=== PATIENT | female | born 1945 | race Caucasian/White ===

== ENCOUNTER → 2016-06-24 13:51 | Outpatient (CLI) | payer MEDICARE | END | disposition home or self-care (01) | LOC: D.CT 13:51 | DX: I71.4 Abdominal aortic aneurysm, without rupture (principal) ==

== ENCOUNTER → 2017-01-19 12:17 | Outpatient (CLI) | payer MEDICARE | END | disposition home or self-care (01) | LOC: D.RT 12:17 | DX: R91.8 Other nonspecific abnormal finding of lung field (principal) ==

== ENCOUNTER → 2017-06-03 15:34 | Outpatient (CLI) | payer MEDICARE ==
[2017-06-03 16:08] LABS: BASOPHILS 0.4 % (0-2); EOSINOPHILS 2.8 % (0-7); HEMATOCRIT 40.6 % (36.0-48.0); HEMOGLOBIN 13.4 g/dL (12-16); IMMATURE GRANULOCYTES 0.1 % (0-5); LYMPHOCYTES 38.9 % (15-50); MCH 31.2 pg (26.0-34.0); MCV 94.6 fL (80.0-100.0); MEAN PLATELET VOLUME 9.1 fL (7.4-10.4); MONOCYTES 6.2 % (2-11); NEUTROPHILS 51.6 % (40-80); PLATELET COUNT 173 10x3/uL (130-400); RBC 4.29 10x6/uL (4.00-5.40); RDW 13.3 % (11.5-14.5); WBC 7.6 10x3/uL (4.8-10.8)
[2017-06-03 16:42] LABS: ANION GAP 11.3 mmol/L (8-16); CALCIUM 10.2 mg/dL (8.5-10.1); PHOSPHOROUS 3.4 mg/dL (2.5-4.9); POTASSIUM - SERUM 3.3 mmol/L (3.5-5.1)
[2017-06-03 17:04] LABS: CREATININE - URINE 129.8 mg/dL (30-125); PRO/CRE RATIO URINE 0.1 mg/g
== END | disposition home or self-care (01) ==
LOC: D.LAB 15:34
PROVIDERS: Internal Medicine Nephrology
DX: N18.3 Chronic kidney disease, stage 3 (moderate) (principal)

== ENCOUNTER → 2017-07-01 13:30 | Outpatient (CLI) | payer MEDICARE | END | disposition home or self-care (01) | LOC: D.MAMMO 13:30 | DX: Z12.31 Encounter for screening mammogram for malignant neoplasm of breast (principal) ==

== ENCOUNTER → 2017-07-21 08:25 | Outpatient (CLI) | payer MEDICARE ==
[2017-07-21 10:12] LABS: CREATININE - SERUM 1.1 mg/dL (0.6-1.3)
== END | disposition home or self-care (01) ==
LOC: D.CT 08:25
PROVIDERS: Internal Medicine Cardiovascular Disease
DX: I71.4 Abdominal aortic aneurysm, without rupture (principal)

== ENCOUNTER → 2017-08-16 07:44 | Outpatient (CLI) | payer MEDICARE ==
[~2017-08-16 07:44] MED LIST: CELEXA40 MG PO; ELIQUIS2.5 MG PO; FENOFIBRATE160 MG PO; HYDROCODONE-APA1 TAB PO; IPRAT-ALBUT 0.5-3 ML UPD; LEVOTHYROXINE125 MCG PO; METFORMIN HCL500 M1 PO; MUCINEX D1 TAB.SR . PO; NEURONTIN 300300 MG PO; OMEPRAZOLE40 MG PO; SINGULAIR10 MG PO; SPIRIVA RESPIMAT4 G1 INH; SYMBICORT 16010.2 GM INH; TENORMIN25 MG PO; VENTOLIN HFA18 GM INH; VITAMIN D31000 UNIT PO; ZANTAC300 MG PO; ZESTRIL40 MG PO; ZOCOR80 MG PO
== END | disposition home or self-care (01) ==
LOC: D.OPS 07:44 → D.RAD 09:00
DX: M16.12 Unilateral primary osteoarthritis, left hip (principal); M25.552 Pain in left hip; Z01.812 Encounter for preprocedural laboratory examination

== ENCOUNTER → 2017-10-05 14:07 | Outpatient (CLI) | payer MEDICARE | END | disposition home or self-care (01) | LOC: D.LABREF 14:07 | DX: M16.12 Unilateral primary osteoarthritis, left hip (principal); Z11.8 Encounter for screening for other infectious and parasitic diseases ==

== ENCOUNTER 2017-10-19 10:00 | Inpatient (IN) | payer MEDICARE ==
[~2017-10-19] VITALS: Ht 160 cm; Wt 102.3 kg
--- NOTE | ~2017-10-19 | OP ---
PATIENT NAME: RENEE ALEXIS MEDICAL RECORD: [id number] :43 LOCATION:D.[id number] ADMISSION DATE:10/24/17 SURGEON: JULIETTE SANCHEZ MD DATE OF OPERATION: 10/24/2017 PREOPERATIVE DIAGNOSIS: Degenerative arthritis of the left hip. POSTOPERATIVE DIAGNOSIS: Degenerative arthritis of the left hip. PROCEDURE: Left total hip arthroplasty. SURGEON: Juliette Sanchez MD ANESTHESIA: General. INTRAOPERATIVE COMPLICATIONS: None. SUMMARY OF PATHOLOGIC FINDINGS: The patient has severe end-stage degenerative hip with substantial osteophytes. IMPLANTS USED: [employer] Anato hip system 130 neck angle size 3, Biolox ceramic head 36 mm +5, Tritanium cluster hole spherical shell size 50, polyethylene insert 36 mm alpha code D. ESTIMATED BLOOD LOSS: 300 cc. OPERATIVE SUMMARY IN DETAIL: After obtaining the appropriate preoperative orthopedic surgery consents as well as anesthetic consultation, evaluation, and clearance, the patient was brought to the operating room and placed on the operating table in supine position. After general laryngeal mask airway was administered, the patient was placed in a right lateral decubitus position. All pressure points were well padded to include down leg peroneal pad as well as axillary roll. The patient was held firmly to the operating table using the vacuum pack suction system. Left lower extremity and hip were then prepped and draped in routine sterile fashion. Curvilinear incision was made over the greater trochanter and taken along the IT band which was split in line with fibers of the IT band to reveal gluteus medius and minimus attachment to the greater trochanter. These were reflected anteriorly to reveal the hip capsule. It was split in a T-type fashion and saved for later reapproximation. Hip was dislocated. Femoral neck cut was made using the femoral neck cutting guide for the Anato system. Attention was then turned to the acetabulum and circumferential labrectomy was then followed by serial and sequential reaming for a size 50. Size [address] with good capture, screws not needed. Liner was put into place and checked. After completing this, attention was turned to the proximal femur. Serial and sequential reaming and broaching were done for a size 3 Anato stem, a size [address]. Trial was undertaken with the minus, standard and +5. The +5 was best for leg length and stability. The +5 [address], reduced, taken through range of motion and intraoperative radiograph showed good position and placement of all components. Having completed this, the wound was copiously irrigated. The hip capsule was closed with #2 Ethibond followed by transosseous reapproximation of the gluteus medius and minimus back to the greater trochanter. IT band was likewise closed with #2 Ethibond. It was followed by #1 Vicryl, 2-0 Vicryl and skin marc. Sterile dressings were applied. The patient was awakened and taken to recovery room in stable condition. All final needle and sponge counts OPERATIVE REPORT [id number] RENEE ALEXIS were correct. TRANSINT:[id number] Voice Confirmation ID: [id number] DOCUMENT ID: [id number] DANIEL HERNANDEZ, JULIETTE DORMAN at 1714 CC: [id number] DICTATION DATE: 10/24/17 1314 ELECTRIC TRANSFER OPERATOR: 10/24/17 1513 ADM IN [place] [id number] [place] [id number]
[~2017-10-19 10:00] MED LIST changes: -ELIQUIS2.5 MG PO; -HYDROCODONE-APA1 TAB PO
[2017-10-19 11:40] LABS: BASOPHILS 0.3 % (0-2); EOSINOPHILS 4.1 % (0-7); HEMATOCRIT 41.3 % (36.0-48.0); HEMOGLOBIN 13.5 g/dL (12-16); MCH 30.3 pg (26.0-34.0); MCHC 32.7 g/dL (31.0-37.0); MCV 92.6 fL (80.0-100.0); MEAN PLATELET VOLUME 9.9 fL (7.4-10.4); MONOCYTES 3.9 % (2-11); NEUTROPHILS 55.7 % (40-80); PLATELET COUNT 148 10x3/uL (130-400); RBC 4.46 10x6/uL (4.00-5.40); RDW 13.3 % (11.5-14.5); WBC 5.9 10x3/uL (4.8-10.8)
[2017-10-19 11:47] LABS: APTT 29.2 SECONDS (22.8-39.4); CALCIUM 9.5 mg/dL (8.5-10.1); CARBON DIOXIDE 28.3 mmol/L (21.0-32.0); CREATININE - SERUM 0.9 mg/dL (0.6-1.3); INR 1.08 (0.85-1.17); POTASSIUM - SERUM 3.3 mmol/L (3.5-5.1); PROTIME 13.6 SECONDS (11.6-15.0)
[2017-10-19 11:54] LABS: APPEARANCE CLEAR (CLEAR); BACTERIA MODERATE /hpf (NONE SEEN); BILIRUBIN NEGATIVE (NEGATIVE); COLOR YELLOW (YELLOW); EPITHELIAL CELLS 0-5 /hpf (0-5); GLUCOSE NEGATIVE (NEGATIVE); HYALINE CAST RARE /lpf (NONE SEEN); KETONE NEGATIVE (NEGATIVE); MUCUS <1+ /lpf (NONE SEEN); NITRITE NEGATIVE (NEGATIVE); PROTEIN NEGATIVE (NEGATIVE); SPECIFIC GRAVITY 1.015 (1.005-1.020); UROBILINOGEN NORMAL (NORMAL)
[2017-10-24 09:12] VITALS: BP 161/72; BMI 39.9
[2017-10-24 09:44] LABS: APPEARANCE HAZY (CLEAR); BILIRUBIN NEGATIVE (NEGATIVE); COLOR YELLOW (YELLOW); GLUCOSE NEGATIVE (NEGATIVE); KETONE NEGATIVE (NEGATIVE); NITRITE NEGATIVE (NEGATIVE); PROTEIN NEGATIVE (NEGATIVE)
[2017-10-24 09:46] LABS: BACTERIA MODERATE /hpf (NONE SEEN); EPITHELIAL CELLS OCC /hpf (0-5); MUCUS <1+ /lpf (NONE SEEN); RED CELLS - URINE RARE /hpf (0-5)
[2017-10-24 09:47] LABS: AMORPHOUS SEDIMENT >1+ /lpf (NONE SEEN); WHITE CELLS - URINE OCC /hpf (0-5)
[2017-10-24 14:16] VITALS: BP 111/50
[2017-10-24 16:31] VITALS: BP 116/58
[2017-10-24 20:11] VITALS: BP 111/50; Ht 160 cm; Wt 102.3 kg
[2017-10-24 21:26] VITALS: BP 147/63
[2017-10-25 02:09] VITALS: BP 122/58
[2017-10-25 05:24] VITALS: BP 158/59
[2017-10-25 07:10] LABS: HEMATOCRIT 33.9 % (36.0-48.0); MCH 30.3 pg (26.0-34.0); MCHC 32.4 g/dL (31.0-37.0); MCV 93.4 fL (80.0-100.0); MEAN PLATELET VOLUME 9.4 fL (7.4-10.4); RBC 3.63 10x6/uL (4.00-5.40); RDW 13.5 % (11.5-14.5); WBC 6.8 10x3/uL (4.8-10.8)
[2017-10-25 08:48] VITALS: BP 147/51
[2017-10-25 13:12] VITALS: BP 119/50
[2017-10-25 16:45] VITALS: BP 126/52
[2017-10-25 20:39] VITALS: BP 152/57
[2017-10-26 04:57] VITALS: BP 145/70
[2017-10-26 06:17] LABS: HEMOGLOBIN 10.9 g/dL (12-16); MCH 30.4 pg (26.0-34.0); MCV 92.2 fL (80.0-100.0); MEAN PLATELET VOLUME 9.7 fL (7.4-10.4); RBC 3.58 10x6/uL (4.00-5.40); RDW 13.3 % (11.5-14.5); WBC 7.8 10x3/uL (4.8-10.8)
[2017-10-26 09:36] VITALS: BP 158/52
[2017-10-26 13:39] VITALS: BP 174/46
[2017-10-26 16:25] VITALS: BP 131/52
[2017-10-26 20:48] VITALS: BP 153/51
[2017-10-27 04:45] VITALS: BP 173/79
[2017-10-27 08:04] VITALS: BP 144/60
[2017-10-27] MEDS ORDERED: ELIQUIS2.5 MG PO (08:23)
[2017-10-27] MEDS ORDERED: HYDROCODONE-APA1 TAB PO (08:24)
[2017-10-27 11:08] VITALS: BP 151/63
== END 2017-10-27 12:40 | disposition home or self-care (01) | DRG 470 ==
LOC: D.SDCHOLD 10:00 → D.MS 10-24 08:20 → D.SDCHOLD 10-24 08:20 → D.MS 10-24 13:43 → D.SDCHOLD 10-25 07:35 → D.MS 10-25 07:35
PROVIDERS: Orthopaedic Surgery
PROC: 0SRB04Z Replacement of Left Hip Joint with Ceramic on Polyethylene Synthetic Substitute, Open Approach (ICD-10-PCS; principal; 2017-10-24 10:30)
DX: M16.12 Unilateral primary osteoarthritis, left hip (principal); M25.752 Osteophyte, left hip; E11.9 Type 2 diabetes mellitus without complications; Z79.84 Long term (current) use of oral hypoglycemic drugs; I10 Essential (primary) hypertension; J44.9 Chronic obstructive pulmonary disease, unspecified; Z87.891 Personal history of nicotine dependence

== ENCOUNTER 2017-10-27 13:30 | Emergency (ER) | payer MEDICARE ==
[~2017-10-27 13:30] MED LIST changes: +ELIQUIS2.5 MG PO; +HYDROCODONE-APA1 TAB PO
[2017-10-27 13:59] LABS: BASOPHILS 0.3 % (0-2); EOSINOPHILS 1.7 % (0-7); HEMATOCRIT 30.8 % (36.0-48.0); HEMOGLOBIN 10.4 g/dL (12-16); IMMATURE GRANULOCYTES 0.4 % (0-5); LYMPHOCYTES 26.7 % (15-50); MCH 30.8 pg (26.0-34.0); MCHC 33.8 g/dL (31.0-37.0); MCV 91.1 fL (80.0-100.0); MEAN PLATELET VOLUME 9.4 fL (7.4-10.4); MONOCYTES 8.5 % (2-11); NEUTROPHILS 62.4 % (40-80); RBC 3.38 10x6/uL (4.00-5.40); RDW 13.3 % (11.5-14.5); WBC 7.9 10x3/uL (4.8-10.8)
[2017-10-27 14:03] LABS: PLATELET COUNT 165 10x3/uL (130-400)
[2017-10-27 14:33] VITALS: BMI 39.9
== END 2017-10-27 14:45 | disposition home or self-care (01) ==
LOC: D.ER 13:30
PROVIDERS: Family Medicine
DX: L76.32 Postprocedural hematoma of skin and subcutaneous tissue following other procedure (principal); I10 Essential (primary) hypertension; J44.9 Chronic obstructive pulmonary disease, unspecified; E11.9 Type 2 diabetes mellitus without complications

== ENCOUNTER 2017-10-30 10:38 | Emergency (ER) | payer MEDICARE ==
[2017-10-30 11:20] LABS: BASOPHILS 0.4 % (0-2); EOSINOPHILS 4.7 % (0-7); HEMATOCRIT 30.3 % (36.0-48.0); HEMOGLOBIN 9.9 g/dL (12-16); IMMATURE GRANULOCYTES 0.8 % (0-5); LYMPHOCYTES 24.1 % (15-50); MCH 30.2 pg (26.0-34.0); MCHC 32.7 g/dL (31.0-37.0); MCV 92.4 fL (80.0-100.0); MEAN PLATELET VOLUME 9.5 fL (7.4-10.4); MONOCYTES 8.7 % (2-11); NEUTROPHILS 61.3 % (40-80); RBC 3.28 10x6/uL (4.00-5.40); RDW 13.4 % (11.5-14.5); WBC 7.2 10x3/uL (4.8-10.8)
[2017-10-30 11:26] LABS: PLATELET COUNT 208 10x3/uL (130-400)
== END 2017-10-30 13:26 | disposition home or self-care (01) ==
LOC: D.ER 10:38
PROVIDERS: Emergency Medicine
DX: L76.32 Postprocedural hematoma of skin and subcutaneous tissue following other procedure (principal); J44.9 Chronic obstructive pulmonary disease, unspecified; E11.9 Type 2 diabetes mellitus without complications; I10 Essential (primary) hypertension

== ENCOUNTER → 2017-11-25 14:01 | Outpatient (CLI) | payer MEDICARE ==
[2017-10-27 14:33] VITALS: BMI 39.9
[~2017-11-25 14:01] MED LIST changes: +AMOXICILLIN875 MG PO; +VIBRAMYCIN 100100 MG PO
== END | disposition home or self-care (01) ==
LOC: D.LABREF 14:01
DX: S71.002A Unspecified open wound, left hip, initial encounter (principal)

== ENCOUNTER 2017-12-08 10:05 | Day surgery (SDC) | payer MEDICARE ==
[~2017-12-08] VITALS: Ht 160 cm; Wt 104.5 kg
--- NOTE | ~2017-12-08 | OP ---
PATIENT NAME: RENEE ALEXIS MEDICAL RECORD: [id number] :43 LOCATION:D.OPS ADMISSION DATE: SURGEON: JULIETTE SANCHEZ MD DATE OF OPERATION: 12/08/2017 PREOPERATIVE DIAGNOSIS: Superficial subq wound infection of the left hip. POSTOPERATIVE DIAGNOSIS: Superficial subq wound infection of the left hip. PROCEDURE: 1. Excisional debridement of the hip to include skin, subcutaneous tissue, portions of fat, fascia, muscle. 2. Application of wound VAC, length 18 x 8 x 5 approximately 60 cm in aggregate. SURGEON: Juliette Sanchez MD ANESTHESIA: General. INTRAOPERATIVE COMPLICATIONS: None. SUMMARY OF PATHOLOGIC FINDINGS: The patient's wound did not appear to go beyond the IT band in fact it was less deep than that, however, it was almost the entire length of the incision. OPERATIVE SUMMARY IN DETAIL: After obtaining the appropriate preoperative orthopedic surgery consent as well as anesthetic consultation, evaluation and clearance, the patient was brought to the operating room and placed on the operating table in supine position. After general laryngeal mask airway was administered, the patient was placed in a right lateral decubitus position. All pressure points well padded to include down leg peroneal pad as well as axillary roll. The patient was held firmly to the operating table using vacuum pack suction system. The patient's left hip was prepped and draped in routine sterile fashion. The small area that was draining was explored and opened up and essentially the patient had an infectious appearing sinus in the subcutaneous tissues all the way up to the apex of the wound. This was opened up its entirety and at this point, a combination of rongeurs, curettage as well as scalpel was utilized to remove all nonviable appearing tissue. Cultures had already been taken. Antibiotics were given. After the wound bed was cleaned down to good bleeding tissue, pulsatile lavage irrigation was carried out. This was then followed by drying this and then placing a wound VAC on it. Wound VAC was put into place with good suction seal at 125 mm of suction, continuous suction at medium intensity. Having completed this, the patient was awakened and taken to the recovery room in stable condition. All final needle and sponge counts were correct. TRANSINT:[id number] Voice Confirmation ID: [id number] DOCUMENT ID: [id number] OPERATIVE REPORT [id number] RENEE ALEXIS MD, JULIETTE DORMAN at 1150 CC: [id number] DICTATION DATE: 12/15/17 1552 VACUUM FURNACE OPERATOR: 12/15/17 1619 [facility] 12/09/17 [place] [id number] [place] [address]
[~2017-12-08 10:05] MED LIST changes: -AMOXICILLIN875 MG PO; -VIBRAMYCIN 100100 MG PO
[2017-12-08 14:37] LABS: BASOPHILS 0.1 % (0-2); EOSINOPHILS 5.4 % (0-7); HEMATOCRIT 37.6 % (36.0-48.0); HEMOGLOBIN 11.9 g/dL (12-16); IMMATURE GRANULOCYTES 0.3 % (0-5); LYMPHOCYTES 25.5 % (15-50); MCH 29.2 pg (26.0-34.0); MCHC 31.6 g/dL (31.0-37.0); MCV 92.2 fL (80.0-100.0); MONOCYTES 6.4 % (2-11); NEUTROPHILS 62.3 % (40-80); PLATELET COUNT 201 10x3/uL (130-400); RBC 4.08 10x6/uL (4.00-5.40); RDW 13.6 % (11.5-14.5); WBC 9.4 10x3/uL (4.8-10.8)
[2017-12-08 14:38] VITALS: BP 166/75; BMI 37.8
[2017-12-08 14:57] LABS: CALC OSMOLALITY 284 mosm/kg (275-300); CALCIUM 9.3 mg/dL (8.5-10.1); CHLORIDE - SERUM 105 mmol/L (98-107); CREATININE - SERUM 0.5 mg/dL (0.6-1.3); GLUCOSE 94 mg/dL (74-106); POTASSIUM - SERUM 4.2 mmol/L (3.5-5.1); SODIUM 143 mmol/L (136-145); UREA NITROGEN 12 mg/dL (7-18); eGFR NON AFRICAN AMERICAN > 90 mL/min (90-120)
[2017-12-08 20:00] VITALS: BP 145/54
[2017-12-09] VITALS: BP 124/64
[2017-12-09 01:37] VITALS: BP 145/54; Ht 160 cm; Wt 104.5 kg
[2017-12-09 04:00] VITALS: BP 148/92
[2017-12-09 05:17] LABS: HEMATOCRIT 33.8 % (36.0-48.0); HEMOGLOBIN 10.6 g/dL (12-16); MCH 28.9 pg (26.0-34.0); MCHC 31.4 g/dL (31.0-37.0); MCV 92.1 fL (80.0-100.0); MEAN PLATELET VOLUME 9.9 fL (7.4-10.4); RBC 3.67 10x6/uL (4.00-5.40); RDW 13.3 % (11.5-14.5)
[2017-12-09] MEDS ORDERED: VIBRAMYCIN 100100 MG PO (08:23)
[2017-12-09] MEDS ORDERED: AMOXICILLIN875 MG PO (08:23)
[2017-12-09 08:58] VITALS: BP 139/65
[2017-12-09 16:06] VITALS: BP 126/64
== END 2017-12-09 16:15 | disposition home or self-care (01) ==
LOC: D.OPS 10:05 → D.MS 20:01 → D.OPS 12-09 16:15
PROVIDERS: Anesthesiology; Orthopaedic Surgery
DX: T81.31XA Disruption of external operation (surgical) wound, not elsewhere classified, initial encounter (principal); Z01.812 Encounter for preprocedural laboratory examination

== ENCOUNTER → 2018-01-25 13:31 | Outpatient (CLI) | payer MEDICARE ==
[2017-12-09 01:37] VITALS: BMI 40.8
[~2018-01-25 13:31] MED LIST changes: +AMOXICILLIN875 MG PO; +VIBRAMYCIN 100100 MG PO
[2018-02-01 19:12] LABS: AEROBE ID Final report (())
== END | disposition home or self-care (01) ==
LOC: D.LABREF 13:31
PROVIDERS: Orthopaedic Surgery
DX: S71.002A Unspecified open wound, left hip, initial encounter (principal)

== ENCOUNTER → 2018-02-13 21:12 | Outpatient (CLI) | payer MEDICARE ==
[2017-12-09 01:37] VITALS: BMI 40.8
[2018-02-13 22:55] LABS: APPEARANCE HAZY (CLEAR); BILIRUBIN NEGATIVE (NEGATIVE); COLOR YELLOW (YELLOW); GLUCOSE NEGATIVE (NEGATIVE); KETONE NEGATIVE (NEGATIVE); NITRITE NEGATIVE (NEGATIVE); PROTEIN NEGATIVE (NEGATIVE); UROBILINOGEN NORMAL (NORMAL)
[2018-02-13 22:57] LABS: RED CELLS - URINE OCC /hpf (0-5); WHITE CELLS - URINE 0-5 /hpf (0-5)
[2018-02-13 22:58] LABS: BACTERIA FEW /hpf (NONE SEEN); EPITHELIAL CELLS 0-5 /hpf (0-5)
== END | disposition home or self-care (01) ==
LOC: D.LABREF 21:12
PROVIDERS: Family Medicine
DX: R30.0 Dysuria (principal)

== ENCOUNTER → 2018-03-29 09:41 | Outpatient (CLI) | payer MEDICARE ==
[2017-12-09 01:37] VITALS: BMI 40.8
== END | disposition home or self-care (01) ==
LOC: D.MRI 09:41
DX: M53.3 Sacrococcygeal disorders, not elsewhere classified (principal)

== ENCOUNTER → 2018-08-03 12:17 | Outpatient (CLI) | payer MEDICARE ==
[2017-12-09 01:37] VITALS: BMI 40.8
== END | disposition home or self-care (01) ==
LOC: D.RT 12:17
PROVIDERS: ATTEND Internal Medicine Pulmonary Disease
DX: R91.8 Other nonspecific abnormal finding of lung field (principal); J44.9 Chronic obstructive pulmonary disease, unspecified

== ENCOUNTER → 2019-02-13 08:22 | Outpatient (CLI) | payer MEDICARE ==
[2017-12-09 01:37] VITALS: BMI 40.8
== END | disposition home or self-care (01) ==
LOC: D.CT 08:22
PROVIDERS: ATTEND Internal Medicine Cardiovascular Disease
DX: I71.2 Thoracic aortic aneurysm, without rupture (principal)

== ENCOUNTER → 2019-05-02 16:05 | Outpatient (CLI) | payer MEDICARE ==
[2017-12-09 01:37] VITALS: BMI 40.8
[~2019-05-02 16:05] MED LIST changes: +BAYER CHEWABLE81 MG PO; +CURCUMIN PO; +FISH OIL 1,0001 CA1 PO; +FLUTICASONE PRO16 GM NASAL; +KENALOG 0.1 % 115 GM TOPICAL; +NORVASC5 MG PO; +RANITIDINE HCL150 M1 PO; +TRELEGY ELLIPT1 EACH INH; -VITAMIN D31000 UNIT PO; +Vitamin D3 PO
[2019-05-02 17:33] LABS: BASOPHILS 0.3 % (0-2); EOSINOPHILS 2.4 % (0-7); HEMATOCRIT 39.2 % (36.0-48.0); HEMOGLOBIN 12.2 g/dL (12-16); IMMATURE GRANULOCYTES 0.2 % (0-5); LYMPHOCYTES 33.4 % (15-50); MCH 28.1 pg (26.0-34.0); MCHC 31.1 g/dL (31.0-37.0); MCV 90.3 fL (80.0-100.0); MEAN PLATELET VOLUME 10.2 fL (7.4-10.4); MONOCYTES 7.3 % (2-11); NEUTROPHILS 56.4 % (40-80); PLATELET COUNT 208 10x3/uL (130-400); RBC 4.34 10x6/uL (4.00-5.40); RDW 14.3 % (11.5-14.5); WBC 5.9 10x3/uL (4.8-10.8)
[2019-05-02 18:38] LABS: ERYTHROCYTE SEDIMENTATION RATE 4 mm/hr (0-30)
== END | disposition home or self-care (01) ==
LOC: D.LABREF 16:05
PROVIDERS: ATTEND Clinical Nurse Specialist Family Health
DX: M25.552 Pain in left hip (principal)

== ENCOUNTER 2019-05-14 08:11 | Day surgery (SDC) | payer MEDICARE ==
[~2019-05-14] VITALS: Ht 160 cm; Wt 102.5 kg
[~2019-05-14 08:11] MED LIST changes: -BAYER CHEWABLE81 MG PO; -CURCUMIN PO; -FISH OIL 1,0001 CA1 PO; -FLUTICASONE PRO16 GM NASAL; -KENALOG 0.1 % 115 GM TOPICAL; -NORVASC5 MG PO; -RANITIDINE HCL150 M1 PO; -TRELEGY ELLIPT1 EACH INH
[2019-05-14 08:51] LABS: HEMATOCRIT 37.7 % (36.0-48.0); HEMOGLOBIN 11.8 g/dL (12-16); MCH 27.6 pg (26.0-34.0); MCHC 31.3 g/dL (31.0-37.0); MCV 88.1 fL (80.0-100.0); MEAN PLATELET VOLUME 8.8 fL (7.4-10.4); RBC 4.28 10x6/uL (4.00-5.40); RDW 14.6 % (11.5-14.5)
[2019-05-14 09:22] LABS: ANION GAP 10.1 mmol/L (8-16); CALCIUM 9.5 mg/dL (8.5-10.1); CREATININE - SERUM 0.9 mg/dL (0.6-1.3); POTASSIUM - SERUM 4.1 mmol/L (3.5-5.1)
[2019-05-14] MEDS ORDERED: RANITIDINE HCL150 M1 PO (09:52)
[2019-05-14] MEDS ORDERED: TRELEGY ELLIPT1 EACH INH (09:53)
[2019-05-14] MEDS ORDERED: NORVASC5 MG PO (09:54)
[2019-05-14] MEDS ORDERED: FLUTICASONE PRO16 GM NASAL (09:55)
[2019-05-14] MEDS ORDERED: KENALOG 0.1 % 115 GM TOPICAL (09:56)
[2019-05-14] MEDS ORDERED: BAYER CHEWABLE81 MG PO (09:57)
[2019-05-14] MEDS ORDERED: FISH OIL 1,0001 CA1 PO (10:00)
[2019-05-14] MEDS ORDERED: CURCUMIN PO (10:00)
[2019-05-14 10:01] VITALS: BP 141/38; Ht 160 cm; Wt 102.5 kg
--- NOTE | 2019-05-14 14:15 | NUR ---
1400 IV REMOVED AND INSTRUCTIONS GIVEN TO PT. ABLE TO STAND AND BEAR WEIGHT
--- NOTE | 2019-05-15 09:45 | OP ---
PATIENT NAME: RENEE ALEXIS MEDICAL RECORD: [id number] :43 LOCATION:D.OPS ADMISSION DATE: SURGEON: JULIETTE SANCHEZ MD DATE OF OPERATION: 05/14/2019 PREOPERATIVE DIAGNOSES: 1. Osteoarthritis of the right hip. 2. Trochanteric bursitis of the left hip. POSTOPERATIVE DIAGNOSES: 1. Osteoarthritis of the right hip. 2. Trochanteric bursitis of the left hip. PROCEDURE: 1. Intra-articular injection under fluoroscopy of the right hip. 2. Fluoroscopic-guided injection of the left greater trochanter. SURGEON: Juliette Sanchez MD ANESTHESIA: TIVA. INTRAOPERATIVE COMPLICATIONS: None. SUMMARY OF PATHOLOGIC FINDINGS: The patient does have mild to moderate osteoarthritis of the right hip consistent with preoperative radiographs. The patient has had known trochanteric bursitis of the left hip after having a total hip arthroplasty. OPERATIVE SUMMARY IN DETAIL: After obtaining the appropriate preoperative orthopedic surgery consent as well as anesthetic consultation, evaluation and clearance, the patient was brought to the operating room and placed on the operating table in supine position. After general TIVA anesthesia was administered, both hips were prepped and draped simultaneously. An 18-gauge needle was introduced in the right hip under fluoroscopic guidance. Small amount of Isovue was utilized to be sure that the needle was in the appropriate place intracapsularly and then 40 mg of Depo-Medrol and 5 cc of 0.25% Marcaine with epinephrine were injected into the hip. Having completed this, attention was turned to the left hip and under fluoroscopic guidance the trochanteric bursa was injected with 5 cc of 0.25% Marcaine with epinephrine and 40 mg of Depo-Medrol. Sterile bandages were applied. The patient was taken back to outpatient in stable condition. TRANSINT:[id number] Voice Confirmation ID: [id number] DOCUMENT ID: [id number] JULIETTE SANCHEZ MD at 0945 CC: [id number] DICTATION DATE: 05/15/19 0852 MEDICAL CODING MANAGER: 05/15/19 0944 [facility] 05/14/19 [place] [address]
== END 2019-05-14 14:05 | disposition home or self-care (01) ==
LOC: D.OPS 08:11 → D.PAN 10:45 → D.OPS 14:05 → D.PAN 19:50 → D.OPS 20:15
PROVIDERS: Anesthesiology; ATTEND Orthopaedic Surgery
DX: M16.12 Unilateral primary osteoarthritis, left hip (principal); M70.62 Trochanteric bursitis, left hip; E11.40 Type 2 diabetes mellitus with diabetic neuropathy, unspecified; Z79.84 Long term (current) use of oral hypoglycemic drugs; J44.9 Chronic obstructive pulmonary disease, unspecified; E03.9 Hypothyroidism, unspecified; E11.22 Type 2 diabetes mellitus with diabetic chronic kidney disease; I12.9 Hypertensive chronic kidney disease with stage 1 through stage 4 chronic kidney disease, or unspecified chronic kidney disease; N18.2 Chronic kidney disease, stage 2 (mild); E78.5 Hyperlipidemia, unspecified; Z96.642 Presence of left artificial hip joint; G56.03 Carpal tunnel syndrome, bilateral upper limbs

== ENCOUNTER 2019-06-04 10:00 | Outpatient (CLI) | payer MEDICARE ==
[2019-05-14 10:01] VITALS: BMI 40.1
[~2019-06-04 10:00] MED LIST changes: +BAYER CHEWABLE81 MG PO; +CURCUMIN PO; +FISH OIL 1,0001 CA1 PO; +FLUTICASONE PRO16 GM NASAL; +KENALOG 0.1 % 115 GM TOPICAL; +NORVASC5 MG PO; +RANITIDINE HCL150 M1 PO; +TRELEGY ELLIPT1 EACH INH
== END 2019-06-04 10:30 | disposition home or self-care (01) ==
LOC: D.MAMMO 10:00
PROVIDERS: ATTEND Family Medicine
DX: Z12.31 Encounter for screening mammogram for malignant neoplasm of breast (principal)

== ENCOUNTER → 2019-06-08 09:31 | Outpatient (CLI) | payer MEDICARE ==
[2019-05-14 10:01] VITALS: BMI 40.1
== END | disposition home or self-care (01) ==
LOC: D.RT 01-12 15:00 → D.RAD 01-12 15:45
PROVIDERS: ATTEND Internal Medicine Pulmonary Disease
DX: J44.9 Chronic obstructive pulmonary disease, unspecified (principal)

== ENCOUNTER 2019-06-11 06:49 | Day surgery (SDC) | payer MEDICARE ==
[~2019-06-11] VITALS: Ht 160 cm; Wt 104.5 kg
[2019-06-11 07:30] LABS: ANION GAP 14.2 mmol/L (8-16); CALCIUM 9.3 mg/dL (8.5-10.1); CARBON DIOXIDE 25.5 mmol/L (21.0-32.0); CREATININE - SERUM 0.8 mg/dL (0.6-1.3); POTASSIUM - SERUM 3.7 mmol/L (3.5-5.1)
[2019-06-11 08:00] VITALS: Ht 160 cm; Wt 104.5 kg
[2019-06-11 08:06] LABS: HEMATOCRIT 38.4 % (36.0-48.0); HEMOGLOBIN 12.4 g/dL (12-16); MCH 28.1 pg (26.0-34.0); MCHC 32.3 g/dL (31.0-37.0); MCV 86.9 fL (80.0-100.0); MEAN PLATELET VOLUME 9.1 fL (7.4-10.4); RBC 4.42 10x6/uL (4.00-5.40); RDW 14.5 % (11.5-14.5); WBC 6.1 10x3/uL (4.8-10.8)
--- NOTE | 2019-06-11 10:52 | NUR ---
1040 IV DC'D. CATHETER TIP INTACT. PRESSURE HELD UNTIL BLEEDING CEASED. BANDAID APPLIED.
--- NOTE | 2019-06-12 07:49 | OP ---
PATIENT NAME: RENEE ALEXIS MEDICAL RECORD: [id number] :43 LOCATION:[facility] ADMISSION DATE: SURGEON: LOKESH BROWN DO DATE OF OPERATION: 06/11/2019 PROCEDURE: Colonoscopy with polypectomy. INDICATIONS FOR PROCEDURE: Screening for colorectal cancer and personal history of polyps. The patient's last colonoscopy was reported to be approximately 5 years ago. SCOPE: Olympus video pediatric colonoscope. MEDICATIONS: Propofol 400 mg IV per anesthesia. WITHDRAWAL TIME: 19 minutes. ESTIMATED BLOOD LOSS: Minimal. COMPLICATIONS: None. FINDINGS: Informed consent was given. The patient was made comfortable with the above medication. After reaching an adequate level of sedation by slow IV push, the patient was placed on her left side. A digital rectal examination was performed and was normal. The endoscope was then advanced under direct visualization through the rectum to the cecum, confirmed by the presence of the appendiceal orifice and ileocecal valve. The endoscope was slowly withdrawn. Mucosa was carefully examined. The prep quality was fair in the majority of the colon, but poor in the cecum and ascending colon. There was evidence of severe diverticulosis involving all segments of the colon. There was no evidence of diverticulitis. There were multiple polyps visualized on today's examination. They were all benign appearing and sessile and ranged in size from 2-5 mm in diameter. One was removed from the cecum with hot forceps, 2 were removed from the ascending colon with hot forceps, and 5 were removed in the transverse colon with hot forceps. Retroflexion was performed in the rectum with visualization of grade I internal hemorrhoids without active bleeding. The endoscope was withdrawn from the patient. The patient tolerated the procedure well and there were no complications. IMPRESSION: 1. Multiple polyps as described above, removed using hot forceps. 2. Severe diverticulosis of the entire colon. 3. Grade I internal hemorrhoids without bleeding. PLAN AND RECOMMENDATIONS: 1. Discharge home when recovery parameters are met. 2. Follow up biopsy specimen results. 3. High fiber diet. 4. Continue current medications. 5. Recall colonoscopy will be at the patient's discretion. If she chooses to have a recall I would recommend 3 years from now, otherwise no further colonoscopies necessary based on the patient's age. TRANSINT:[id number] Voice Confirmation ID: [id number] DOCUMENT ID: [id number] OPERATIVE REPORT [id number] VANESA,LOKESH LOPEZ DO at 0749 CC: [id number] DICTATION DATE: 06/11/19 0950 EXPLOSIVE OPERATOR BOMB: 06/11/[address] [facility] 06/11/19 [facility] [address] [place] [address]
== END 2019-06-11 10:58 | disposition home or self-care (01) ==
LOC: D.OPS 06:49
PROVIDERS: Anesthesiology; ATTEND Internal Medicine Gastroenterology
DX: Z12.11 Encounter for screening for malignant neoplasm of colon (principal); Z86.010 Personal history of colon polyps; K21.9 Gastro-esophageal reflux disease without esophagitis; R10.10 Upper abdominal pain, unspecified; R07.9 Chest pain, unspecified

== ENCOUNTER 2019-06-25 10:02 | Day surgery (SDC) | payer MEDICARE ==
[~2019-06-25] VITALS: Ht 160 cm; Wt 104.5 kg
[2019-06-25 10:32] LABS: BASOPHILS 0.2 % (0-2); EOSINOPHILS 1.5 % (0-7); HEMATOCRIT 37.4 % (36.0-48.0); HEMOGLOBIN 11.6 g/dL (12-16); IMMATURE GRANULOCYTES 0.2 % (0-5); LYMPHOCYTES 27.5 % (15-50); MCH 27.6 pg (26.0-34.0); MEAN PLATELET VOLUME 9.1 fL (7.4-10.4); MONOCYTES 4.4 % (2-11); NEUTROPHILS 66.2 % (40-80); PLATELET COUNT 155 10x3/uL (130-400); RDW 14.1 % (11.5-14.5); WBC 6.1 10x3/uL (4.8-10.8)
[2019-06-25 10:39] LABS: ANION GAP 10.5 mmol/L (8-16); CALCIUM 8.8 mg/dL (8.5-10.1); CARBON DIOXIDE 30.4 mmol/L (21.0-32.0); POTASSIUM - SERUM 3.9 mmol/L (3.5-5.1)
[2019-06-25 11:08] VITALS: BP 145/65; Ht 160 cm; Wt 104.5 kg
--- NOTE | 2019-06-25 13:22 | NUR ---
1312 IV DC'D. CATHETER TIP INTACT. NO BLEEDING AT SITE. BANDAID APPLIED.
--- NOTE | 2019-06-26 07:42 | OP ---
PATIENT NAME: RENEE ALEXIS MEDICAL RECORD: [id number] :43 LOCATION:[facility] ADMISSION DATE: SURGEON: LOKESH BROWN DO DATE OF OPERATION: 06/25/2019 PROCEDURE: EGD with biopsies. INDICATIONS FOR PROCEDURE: Upper abdominal pain, GERD, chest pain. SCOPE: Olympus video gastroscope. MEDICATIONS: Propofol 130 mg IV per anesthesia. ESTIMATED BLOOD LOSS: Minimal. COMPLICATIONS: None. FINDINGS: Informed consent was given. The patient was made comfortable with the above medication. After reaching an adequate level of sedation by slow IV push, the patient was placed on her left side. The endoscope was advanced under direct visualization through the mouth to the second portion of the duodenum. The entire esophagus appeared normal. At the GE junction, there were minor changes consistent with LA class A reflux-induced esophagitis. The endoscope was advanced beyond the GE junction into the stomach and retroflexed to view the cardia. The cardia itself appeared somewhat patulous which is likely the patient's main reason for the reflux she does experience. The fundus of the stomach appears normal. The remainder of the mucosa of the stomach also appeared normal throughout the body and antrum and prepyloric regions. Cold forceps, biopsies were taken from the antrum and incisura to submit for histopathology and to rule out the presence of H. pylori. The endoscope was advanced beyond the pylorus into the duodenum, which appeared normal to the second portion. The endoscope was then withdrawn from the patient. The patient tolerated the procedure well and there were no complications. IMPRESSION: 1. LA class A reflux-induced esophagitis. 2. Patulous GE junction, but no obvious hiatal hernia. PLAN AND RECOMMENDATIONS: 1. Discharge home when recovery parameters are met. 2. Follow up biopsy specimen results. 3. GERD diet and reflux precautions. 4. Continue current medications including omeprazole 40 mg daily. As long as this medication is controlling symptoms, this can be continued. If the patient is still using ranitidine, we will discontinue this and change to Pepcid for as needed use in the evenings. 5. Repeat EGD as needed for symptoms. TRANSINT:[id number] Voice Confirmation ID: [id number] DOCUMENT ID: [id number] OPERATIVE REPORT [id number] RENEE AELXIS LOKESH BROWN DO at 0742 CC: [id number] DICTATION DATE: 06/25/19 1236 RN CHEMICAL DEPENDENCY: 06/25/192031 [facility] 06/25/19 [facility] [address] [place] [address]
== END 2019-06-25 13:31 | disposition home or self-care (01) ==
LOC: D.OPS 10:02
PROVIDERS: Anesthesiology; ATTEND Internal Medicine Gastroenterology
DX: R10.10 Upper abdominal pain, unspecified (principal); K21.9 Gastro-esophageal reflux disease without esophagitis; R07.9 Chest pain, unspecified

== ENCOUNTER 2020-01-21 11:55 | Emergency (ER) | payer MEDICARE ==
[~2020-01-21] VITALS: Ht 160 cm; Wt 105.9 kg
[2020-01-21 12:07] VITALS: Ht 160 cm; Wt 105.9 kg
[2020-01-21] MEDS ORDERED: SPIRIVA RESPIMAT4 G1 (12:13)
[2020-01-21] MEDS ORDERED: PROZAC10 MG PO (12:19)
[2020-01-21 13:19] LABS: BASOPHILS 0.2 % (0-2); EOSINOPHILS 2.1 % (0-7); HEMOGLOBIN 11.1 g/dL (12-16); IMMATURE GRANULOCYTES 0.2 % (0-5); LYMPHOCYTES 30.1 % (15-50); MCH 25.4 pg (26.0-34.0); MCV 84.7 fL (80.0-100.0); MEAN PLATELET VOLUME 9.6 fL (7.4-10.4); MONOCYTES 5.1 % (2-11); NEUTROPHILS 62.3 % (40-80); PLATELET COUNT 144 10x3/uL (130-400); RBC 4.37 10x6/uL (4.00-5.40); RDW 15.3 % (11.5-14.5); WBC 5.7 10x3/uL (4.8-10.8)
[2020-01-21 13:27] LABS: CALC OSMOLALITY 284 mosm/kg (275-300); CALCIUM 9.2 mg/dL (8.5-10.1); CARBON DIOXIDE 29.6 mmol/L (21.0-32.0); CHLORIDE - SERUM 106 mmol/L (98-107); GLUCOSE 101 mg/dL (74-106); POTASSIUM - SERUM 3.8 mmol/L (3.5-5.1); SODIUM 143 mmol/L (136-145); UREA NITROGEN 13 mg/dL (7-18); eGFR NON AFRICAN AMERICAN 57 mL/min (90-120)
[2020-01-21 13:43] LABS: ALBUMIN 3.8 g/dL (3.4-5.0); ALKALINE PHOSPHATASE 51 U/L (30-120); ALT (SGPT) 26 U/L (10-68); BILIRUBIN - TOTAL 0.45 mg/dL (0.2-1.3); CKMB 1.4 U/L (0.0-3.6); CREATINE KINASE 70 UL (21-215); LIPASE 114 U/L (73-393); MAGNESIUM - SERUM 1.9 mg/dL (1.8-2.4); PRO BNP 102 pg/mL (0-450)
[2020-01-21 13:46] LABS: TROPONIN-I < 0.017 ng/mL (0.000-0.060)
[2020-01-21 13:54] LABS: APTT 30.3 SECONDS (22.8-39.4); INR 1.05 (0.85-1.17); PROTIME 13.6 SECONDS (11.6-15.0)
[2020-01-21 17:26] VITALS: BP 144/41
[2020-01-21] MEDS ORDERED: PEPCID AC20 MG PO (17:34)
== END 2020-01-21 17:56 | disposition home or self-care (01) ==
LOC: D.ER 11:55
PROVIDERS: Family Medicine
DX: R07.9 Chest pain, unspecified (principal); K29.70 Gastritis, unspecified, without bleeding; J44.9 Chronic obstructive pulmonary disease, unspecified; K21.9 Gastro-esophageal reflux disease without esophagitis; I12.9 Hypertensive chronic kidney disease with stage 1 through stage 4 chronic kidney disease, or unspecified chronic kidney disease; N18.2 Chronic kidney disease, stage 2 (mild)

== ENCOUNTER → 2020-08-21 12:17 | Outpatient (CLI) | payer MEDICARE ==
[2020-01-21 12:07] VITALS: BMI 41.3
[~2020-08-21 12:17] MED LIST changes: +PEPCID AC20 MG PO; +PROZAC10 MG PO; +SPIRIVA RESPIMAT4 G1
== END | disposition home or self-care (01) ==
LOC: D.LAB 12:17
PROVIDERS: ATTEND Internal Medicine Pulmonary Disease
DX: Z11.52 Encounter for screening for COVID-19 (principal)

== ENCOUNTER → 2020-08-26 12:17 | Outpatient (CLI) | payer MEDICARE ==
[2020-01-21 12:07] VITALS: BMI 41.3
== END | disposition home or self-care (01) ==
LOC: D.RT 12:17
PROVIDERS: ATTEND Internal Medicine Pulmonary Disease
DX: J44.9 Chronic obstructive pulmonary disease, unspecified (principal)